=== PATIENT | female | born 1975 | race African-American/Black ===

== ENCOUNTER → 2016-10-16 | Outpatient (CLI) | payer OTHER ==
[~2016-10-16] MED LIST: ACCUNEB SO1.25 MG/1 IH; ALBUTEROL INHAL17 GM IH; BACTRIM DS TAB1 EACH PO; BENADRYL25 MG PO; BENZTROPINE MES1 MG PO; CARBAMAZEPINE200 M2 PO; CIPROFLOXACIN500 M1 PO; CLEOCIN HCL150 MG PO; COLACE 100 MG100 MG PO; DEMEROL100 MG PO; DEMEROL50 MG PO; DIAZEPAM; DIAZEPAM 10 MG10 M1 OR; DIAZEPAM 10 MG10 M1 PO; DIAZEPAM5 MG/5 ML IM; DOXYCYCLINE 10100 M1 PO; FLAGYL500 MG PO; FLEXERIL PO; FLONASE 0.05%50 MCG NS; HALDOL PO; MACROBID 100 M100 M1 PO; MORPHINE PO; MS CONTIN 30 MG30 M1 PO; MS CONTIN30 MG PO; ORAMORPH PO; PHENERGAN 25 MG25 M1 PO; PHENERGAN IV; PHENERGAN25 MG RE; PROMETHAZINE/C118 ML PO; PROVENTIL HFA6.7 G1 INH; REMERON15 MG PO; SAPHRIS10 MG SL; SEROQUEL 100 M100 MG PO; SILENOR3 MG PO; SPIRIVA INH; SUMYCIN 250250 MG PO; SYMBICORT160 MCG/4. INH; TOPAMAX; TOPAMAX100 MG PO; TOPAMAX200 MG PO; VALIUM10 MG PO; VALIUM5 MG PO; ZANAFLEX4 M1 PO; ZYPREXA 10 MG T10 MG PO; ZYPREXA IM; [UNRECOGNIZED DRUG - OTHER]
[2016-10-16 09:31] LABS: HEMATOCRIT 39.4 % (37.0-47.0); HEMOGLOBIN 13.2 gm/dL (12.0-15.0); MCH 29.4 pg (26.0-34.0); MCHC 33.4 g/dL (28.0-37.0); MCV 88.2 fL (80.0-100.0); PLATELET COUNT 209 thou/uL (150-400); RBC 4.47 mil/uL (4.20-5.00); RDW 12.6 % (10.5-14.5); WBC 3.4 thou/uL (4.0-11.0)
[2016-10-16 09:34] LABS: MANUAL DIFF YES
[2016-10-16 10:13] LABS: ALBUMIN 4.4 g/dL (3.4-5.0); CALCIUM 9.3 mg/dL (8.5-10.1); CREATININE 0.9 mg/dL (0.6-1.0); POTASSIUM 3.3 mmol/L (3.5-5.1); TOTAL BILIRUBIN 0.4 mg/dL (<0.1-1.0); TOTAL PROTEIN 7.8 g/dL (6.4-8.2)
[2016-10-16 10:33] LABS: ABSOLUTE NEUTROPHILS 1.7 thou/uL (1.4-8.2); ATYPICAL LYMPHS 2 %; PLATELET ESTIMATE NORMAL; TOTAL CELL COUNT 100
== END | disposition home or self-care (01) ==
LOC: CAT 08:33
PROVIDERS: Family Medicine
DX: Z45.2 Encounter for adjustment and management of vascular access device (principal)

== ENCOUNTER 2016-11-01 14:48 | Emergency (ER) | payer OTHER ==
[~2016-11-01] VITALS: Ht 170.2 cm; Wt 68.0 kg
[2016-11-01] MEDS ORDERED: PHENERGAN 25 MG25 M1 PO ×2 (15:48→17:42)
[2016-11-01 15:57] LABS: URINE BILIRUBIN NEGATIVE (Negative); URINE BLOOD 1+ (Negative); URINE COLOR YELLOW; URINE GLUCOSE-RANDOM* NEGATIVE (Negative); URINE KETONES 1+ (Negative); URINE NITRITE NEGATIVE (Negative); URINE PROTEIN (DIPSTICK) NEGATIVE (Negative); URINE SPECIFIC GRAVITY <= 1.005 (1.003-1.035); URINE UROBILINOGEN 0.2 E.U./dl (0.2-1.0)
[2016-11-01 16:08] LABS: BACTERIA 1-9 Few /HPF (None Seen); CRYSTALS None Seen /LPF (None Seen); HYALINE CASTS 0-3 Few /LPF (None Seen); SQUAMOUS 4-10 Moderate /LPF (0-3); URINE RBC 3-10 Few /HPF (0-2); URINE WBC 6-15 Few /HPF (0-5)
[2016-11-01 16:23] LABS: ABSOLUTE NEUTROPHILS 4.7 thou/uL (1.4-8.2); EOSINOPHILS 0.1 % (0.0-3.0); HEMATOCRIT 40.3 % (37.0-47.0); HEMOGLOBIN 13.5 gm/dL (12.0-15.0); LYMPHOCYTES 13.5 % (24.0-44.0); MCH 29.2 pg (26.0-34.0); MCHC 33.5 g/dL (28.0-37.0); MCV 87.3 fL (80.0-100.0); MONOCYTES 3.6 % (1.0-8.0); PLATELET COUNT 265 thou/uL (150-400); POLYS 81.8 % (36.0-66.0); RBC 4.61 mil/uL (4.20-5.00); RDW 12.6 % (10.5-14.5); WBC 5.8 thou/uL (4.0-11.0)
[2016-11-01 16:28] LABS: MANUAL DIFF NO
[2016-11-01 16:31] LABS: ANION GAP 9 mmol/L (7-16); BUN 9 mg/dL (7-18); CALCIUM 9.8 mg/dL (8.5-10.1); CHLORIDE 107 mmol/L (98-107); CO2 27 mmol/L (21-32); CREATININE 0.9 mg/dL (0.6-1.0); GLUCOSE 95 mg/dL (74-106); POTASSIUM 3.4 mmol/L (3.5-5.1); SODIUM 143 mmol/L (136-145)
[2016-11-01 16:36] LABS: ALBUMIN 4.6 g/dL (3.4-5.0); ALKALINE PHOSPHATASE 52 U/L (46-116); DIRECT BILIRUBIN < 0.1 mg/dL (<0.1-0.3); SGOT 13 U/L (15-37); SGPT 10 U/L (30-65); TOTAL BILIRUBIN 0.4 mg/dL (<0.1-1.0); TOTAL PROTEIN 8.3 g/dL (6.4-8.2)
[2016-11-01 18:27] VITALS: BP 135/89
== END 2016-11-01 18:44 | disposition home or self-care (01) ==
LOC: ER 14:48
PROVIDERS: Emergency Medicine
DX: G89.29 Other chronic pain (principal); R10.33 Periumbilical pain; R19.7 Diarrhea, unspecified; R11.2 Nausea with vomiting, unspecified; N76.4 Abscess of vulva; J45.909 Unspecified asthma, uncomplicated; F41.9 Anxiety disorder, unspecified; F32.9 Major depressive disorder, single episode, unspecified; Z85.43 Personal history of malignant neoplasm of ovary; Z86.718 Personal history of other venous thrombosis and embolism; Z91.041 Radiographic dye allergy status; Z88.6 Allergy status to analgesic agent; Z88.4 Allergy status to anesthetic agent; Z88.1 Allergy status to other antibiotic agents; Z88.5 Allergy status to narcotic agent; Z88.8 Allergy status to other drugs, medicaments and biological substances